=== PATIENT | male | born 1950 | race Caucasian/White ===

== ENCOUNTER → 2016-03-14 | Outpatient (CLI) | payer MEDICARE, BC ==
[2016-03-14 10:24] LABS: ALANINE AMINOTRANSFERASE 31 U/L (21-72); ALBUMIN 3.5 g/dL (3.5-5.0); ALKALINE PHOSPHATASE 74 U/L (38-126); ANION GAP 10 (5-19); ASPARTATE AMINO TRANSFERASE 23 U/L (17-59); BILIRUBIN,TOTAL 0.6 mg/dL (0.2-1.3); BLOOD UREA NITROGEN 24 mg/dL (7-20); CALCIUM 9.8 mg/dL (8.4-10.2); CARBON DIOXIDE 28 mmol/L (22-30); CHLORIDE 105 mmol/L (98-107); CHOLESTEROL 110.24 mg/dL (0-200); CREATININE RESULT 1.09 mg/dL (0.52-1.25); Direct HDL 34 mg/dL (>40); GLUCOSE 103 mg/dL (75-110); POTASSIUM 5.4 mmol/L (3.6-5.0); SODIUM 142.9 mmol/L (137-145); TOTAL PROTEIN 6.1 g/dL (6.3-8.2); TRIGLYCERIDES 100 mg/dL (<150)
[2016-03-14 10:35] LABS: DIRECT LDL 60 mg/dL (<100)
== END ==
LOC: OD 08:38
PROVIDERS: ATTEND Internal Medicine
DX: R73.9 Hyperglycemia, unspecified (principal); I10 Essential (primary) hypertension; E78.5 Hyperlipidemia, unspecified
CPT/HCPCS: 36415; 80053; 80061; 83525

== ENCOUNTER → 2016-11-23 | Outpatient (CLI) | payer MEDICARE, BC ==
[2016-11-23 09:20] LABS: ABSOLUTE EOSINOPHILS # (AUTO) 0.1 10^3/uL (0.0-0.6); ABSOLUTE LYMPHOCYTES (AUTO) 1.9 10^3/uL (0.5-4.7); ABSOLUTE MONOCYTES (AUTO) 0.4 10^3/uL (0.1-1.4); ABSOLUTE NEUT (AUTO) 2.8 10^3/uL (1.7-8.2); BASOPHILS % (AUTO) 0.6 % (0-2); EOSINOPHILS % (AUTO) 2.8 % (0-6); HEMATOCRIT 39.5 % (37.9-51.0); HEMOGLOBIN 13.5 g/dL (13.5-17.0); LYMPHOCYTES % (AUTO) 35.6 % (13-45); MEAN CORPUSCULAR HEMOGLOBIN 29.4 pg (27.0-33.4); MEAN CORPUSCULAR HGB CONC 34.2 g/dL (32.0-36.0); MEAN CORPUSCULAR VOLUME 86 fl (80-97); RED BLOOD COUNT 4.59 10^6/uL (4.35-5.55); RED CELL DISTRIBUTION WIDTH 13.8 % (11.5-14.0); WHITE BLOOD COUNT 5.2 10^3/uL (4.0-10.5)
[2016-11-23 09:50] LABS: ALANINE AMINOTRANSFERASE 24 U/L (21-72); ALBUMIN 3.6 g/dL (3.5-5.0); ALKALINE PHOSPHATASE 82 U/L (38-126); ANION GAP 9 (5-19); ASPARTATE AMINO TRANSFERASE 20 U/L (17-59); BILIRUBIN,DIRECT 0.4 mg/dL (0.0-0.4); BILIRUBIN,TOTAL 0.7 mg/dL (0.2-1.3); BLOOD UREA NITROGEN 17 mg/dL (7-20); CARBON DIOXIDE 26 mmol/L (22-30); CHLORIDE 106 mmol/L (98-107); CHOLESTEROL 112.98 mg/dL (0-200); CREATININE RESULT 0.94 mg/dL (0.52-1.25); Direct HDL 38 mg/dL (>40); GLUCOSE 104 mg/dL (75-110); POTASSIUM 4.3 mmol/L (3.6-5.0); SODIUM 141.4 mmol/L (137-145); TRIGLYCERIDES 90 mg/dL (<150)
[2016-11-23 10:01] LABS: DIRECT LDL 61 mg/dL (<100)
== END ==
LOC: OD 08:29
PROVIDERS: ATTEND Internal Medicine
DX: E78.5 Hyperlipidemia, unspecified (principal); R73.9 Hyperglycemia, unspecified; N40.0 Benign prostatic hyperplasia without lower urinary tract symptoms; R53.83 Other fatigue; R35.1 Nocturia; E66.9 Obesity, unspecified; I10 Essential (primary) hypertension
CPT/HCPCS: 36415; 80053; 80061; 83036; 84153; 84443; 85025

== ENCOUNTER → 2017-06-25 | Outpatient (CLI) | payer MEDICARE, BC ==
[2017-06-25 09:30] LABS: ABSOLUTE EOSINOPHILS # (AUTO) 0.2 10^3/uL (0.0-0.6); ABSOLUTE LYMPHOCYTES (AUTO) 2.7 10^3/uL (0.5-4.7); ABSOLUTE MONOCYTES (AUTO) 0.5 10^3/uL (0.1-1.4); ABSOLUTE NEUT (AUTO) 4.2 10^3/uL (1.7-8.2); BASOPHILS % (AUTO) 0.6 % (0-2); EOSINOPHILS % (AUTO) 2.6 % (0-6); HEMATOCRIT 40.3 % (37.9-51.0); HEMOGLOBIN 13.5 g/dL (13.5-17.0); LYMPHOCYTES % (AUTO) 34.6 % (13-45); MEAN CORPUSCULAR HEMOGLOBIN 29.2 pg (27.0-33.4); MEAN CORPUSCULAR HGB CONC 33.5 g/dL (32.0-36.0); MEAN CORPUSCULAR VOLUME 87 fl (80-97); PLATELET COUNT 217 10^3/uL (150-450); RED BLOOD COUNT 4.61 10^6/uL (4.35-5.55); RED CELL DISTRIBUTION WIDTH 13.5 % (11.5-14.0); SEGMENTED NEUTROPHILS % (AUTO) 55.2 % (42-78); TOTAL CELLS COUNTED % (AUTO) 100 %; WHITE BLOOD COUNT 7.7 10^3/uL (4.0-10.5)
[2017-06-25 09:59] LABS: ALANINE AMINOTRANSFERASE 41 U/L (21-72); ALBUMIN 3.8 g/dL (3.5-5.0); ALKALINE PHOSPHATASE 70 U/L (38-126); ANION GAP 10 (5-19); ASPARTATE AMINO TRANSFERASE 23 U/L (17-59); BILIRUBIN,DIRECT 0.2 mg/dL (0.0-0.4); BILIRUBIN,TOTAL 0.6 mg/dL (0.2-1.3); BLOOD UREA NITROGEN 35 mg/dL (7-20); CARBON DIOXIDE 29 mmol/L (22-30); CHLORIDE 105 mmol/L (98-107); CHOLESTEROL 114.41 mg/dL (0-200); GLUCOSE 110 mg/dL (75-110); POTASSIUM 5.3 mmol/L (3.6-5.0); SODIUM 143.5 mmol/L (137-145); TOTAL PROTEIN 6.2 g/dL (6.3-8.2); TRIGLYCERIDES 143 mg/dL (<150)
[2017-06-25 10:11] LABS: DIRECT LDL 58 mg/dL (<100)
== END ==
LOC: OD 08:15
PROVIDERS: ATTEND Internal Medicine
DX: E78.5 Hyperlipidemia, unspecified (principal); I48.0 Paroxysmal atrial fibrillation; R73.9 Hyperglycemia, unspecified; R60.9 Edema, unspecified; G47.33 Obstructive sleep apnea (adult) (pediatric)
CPT/HCPCS: 36415; 80053; 80061; 83525; 85025

== ENCOUNTER 2018-10-21 04:36 | Emergency (ER) | payer MEDICARE, BC ==
--- NOTE | 2018-10-21 06:16 | RADIOLOGY REPORT (SQ) ---
EXAM DESCRIPTION: XR WRIST 3 OR MORE VIEWS COMPLETED DATE/TME: 10/21/2018 00:00 CLINICAL HISTORY: 68 years, Male, fall, bone pain COMPARISON: None. NUMBER OF VIEWS: 3 TECHNIQUE: 3 views left wrist LIMITATIONS: None. FINDINGS: Osteopenia. Mild diffuse soft tissue swelling. Subtle lucency seen on the lateral view only in the region of the dorsal aspect of the lunate bone. This likely reflects superimposition of structures. Nondisplaced fracture. Unlikely. No other evidence for acute abnormality IMPRESSION: Osteopenia. Probable superimposition of structures on the lateral view. Mild soft tissue swelling. If symptoms persist consider repeat in 10-14 days copyright 2011 [employer]- All Rights Reserved
--- NOTE | 2018-10-21 06:19 | RADIOLOGY REPORT (SQ) ---
EXAM: X-ray fingers CLINICAL DATA: 68-year-old male status post fall with bone pain, pain in left thumb TECHNICAL DATA: Three x-ray views of the left thumb were performed on 10/21/2018 at 5:43 AM. COMPARISONS: None FINDINGS: There is no evidence of fracture or dislocation. There is no significant arthritis or degenerative change. No focal lytic or sclerotic bone lesions are seen. There is very mild narrowing of the DIP and PIP joints. Bone mineralization is slightly decreased. No focal soft tissue abnormalities are identified. IMPRESSION: No evidence of acute osseous injury involving the left hand with attention to the left thumb.
--- NOTE | 2018-10-21 06:19 | RADIOLOGY REPORT (SQ) ---
EXAM DESCRIPTION: XR FINGERS COMPLETED DATE/TME: 10/21/2018 00:00 CLINICAL HISTORY: 68 years, Male, bone pain COMPARISON: None. NUMBER OF VIEWS: 3 TECHNIQUE: 3 views of the right hand LIMITATIONS: None. FINDINGS: Negative for acute fracture or dislocation. Osteopenia with minor degenerative change throughout the hand. IMPRESSION: No acute osseous abnormality copyright 2010 [employer]- All Rights Reserved
[2018-10-21 07:38] VITALS: BP 134/76
--- NOTE | 2018-10-21 08:26 | ER Document Report ---
Entered by RAFAEL LEÓN SCRIBE 10/21/18 0704 Acting as scribe for:BRODY HERNANDEZ MD ED Fall - General Chief Complaint: Fall Stated Complaint: LEFT WRIST PAIN Time Seen by Provider: 10/21/18 06:41 Primary Care Provider: [facility] [Provider Group] - Follow up in 3-5 days DEANNE CAGLE MD [Primary Care Provider] - Follow up as needed Notes: Patient is a 68-year-old male that presents to the emergency department today with complaints of left wrist pain which began after a fall last night. Patient states he was walking up the steps last night when he got home and it was dark, he missed and stepped and tripped, falling on his right knee and outstretched arms. Patient states he scraped his right knee. Patient states his only concern is his left wrist. Patient states he took Motrin and Aleve last night but had trouble sleeping secondary to pain. TRAVEL OUTSIDE OF THE [place] IN LAST 30 DAYS: No - Related data Allergies/Adverse Reactions: Penicillins Allergy (Intermediate, Verified 10/21/18 07:38) Past Medical History - General Information source: Patient, [facility] Records - Social History Smoking Status: Never Smoker Cigarette use (# per day): No Frequency of alcohol use: None Drug Abuse: None Lives with: Family Family History: Reviewed & Not Pertinent - Past Medical History Cardiac Medical History: Reports: Hx Hypercholesterolemia, Hx Hypertension Endocrine Medical History: Reports: Hx Diabetes Mellitus Type 2 Renal/ Medical History: Reports: Hx Benign Prostatic Hyperplasia Past Surgical History: Reports: Hx Cholecystectomy, Hx Gastric Bypass Surgery Review of Systems - Review of Systems Constitutional: No symptoms reported EENT: No symptoms reported Cardiovascular: No symptoms reported Respiratory: No symptoms reported Gastrointestinal: No symptoms reported Genitourinary: No symptoms reported Male Genitourinary: No symptoms reported Musculoskeletal: See HPI, Joint pain - bilateral wrist pain Skin: No symptoms reported Hematologic/Lymphatic: No symptoms reported Neurological/Psychological: No symptoms reported -: Yes All other systems reviewed and negative Physical Exam - Vital signs Vitals: Temp Pulse Resp BP Pulse Ox 97.2 F 85 16 143/85 H 98 10/21/18 04:45 10/21/18 04:45 10/21/18 04:45 10/21/18 04:45 10/21/18 04:45 - Notes Notes: Physical Exam: General: Alert, appears well. Obese. HEENT: Normocephalic. Atraumatic. PERRL. Extraocular movements intact. Oropharynx clear. Neck: Supple. Non-tender. Respiratory: No respiratory distress. Clear and equal breath sounds bilaterally. Cardiovascular: Regular rate and rhythm. Abdominal: Obese. Non-tender. No distension. Normal Bowel Sounds. Back: Grossly normal Extremities: Moves all four extremities. Right wrist- Tenderness with palpation over the base of the 1st metacarpal. Tenderness with palpation over the thenar muscles of the right thumb. No snuff box tenderness with palpation. Left wrist- Dorsal swelling of the left wrist. Tenderness with palpation over the medial radial wrist. Tenderness with palpation over the base of the 1st metacarpal. Tenderness with palpation over the thenar muscles of the right thumb. No snuff box tenderness with palpation. Lower extremities: Normal inspection. No edema. Normal ROM. Neurological: Normal cognition. AAOx4. Normal speech. Psychological: Normal affect. Normal Mood. Skin: Warm. Dry. Normal color. Course - Re-evaluation Re-evalutation: 10/21/18 08:03 The Velcro cock-up splint was placed on the left wrist by the PCT. It fits well. It provides support and limits of motion at the wrist. Patient reports it does feel better. - Vital Signs Vital signs: Temp Pulse Resp BP Pulse Ox 97.9 F 64 16 134/76 H 97 10/21/18 07:37 10/21/18 07:37 10/21/18 07:37 10/21/18 07:37 10/21/18 07:37 - Diagnostic Test Radiology reviewed: Image reviewed, Reports reviewed - X-rays of both hands and the left wrist do not show fractures, there is osteopenia noted. Discharge - Discharge Clinical Impression: Osteopenia determined by x-ray Sprain of left wrist Qualifiers: Encounter type: initial encounter Qualified Code(s): S63.502A - Unspecified sprain of left wrist, initial encounter Sprain of hand Qualifiers: Encounter type: initial encounter Laterality: unspecified laterality Qualified Code(s): S63.90XA - Sprain of unspecified part of unspecified wrist and hand, initial encounter Condition: Stable Disposition: HOME, SELF-CARE Additional Instructions: Sprain: Your injury is a sprain. A sprain results from stretching or tearing of the ligaments, usually from a twisting injury. The ligaments will require time and protection in order to heal properly. Many sprains are quite disabling and should be taken seriously. The usual initial treatment of sprains is cold packs, elevation, and rest of the injured area. Your physician has assessed the seriousness of your ligament injury, and has outlined a treatment plan. Understand that this treatment may change, depending on how you progress. If a re-examination was recommended, it is important that you follow up as instructed. Call the doctor any time if there is severe pain, numbness, or loss of function in the injured area. You have a sprain of the left wrist, and sprain on both hands along the first metacarpal. Use the splint to protect the ligaments in the left wrist. Take ibuprofen 800 mg every 8 hours, or Aleve 2 tablets every 12 hours for pain. Take the pain medication as dispensed if needed to help you sleep. Call [facility] for surgery today to schedule a follow-up appointment with Dr. Oseguera. Be sure to discuss the osteopenia noted on the x-rays with your doctor. RETURN TO THE EMERGENCY ROOM IF ANY NEW OR WORSENING SYMPTOMS. Referrals: DEANNE CAGLE MD [Primary Care Provider] - Follow up as needed [facility] [Provider Group] - Follow up in 3-5 days I personally performed the services described in the documentation, reviewed and edited the documentation which was dictated to the scribe in my presence, and it accurately records my words and actions.
== END 2018-10-21 07:38 | disposition home or self-care (01) ==
LOC: ER 04:36
DX: S63.502A Unspecified sprain of left wrist, initial encounter (principal); S63.90XA Sprain of unspecified part of unspecified wrist and hand, initial encounter; M25.532 Pain in left wrist; M25.531 Pain in right wrist; W10.9XXA Fall (on) (from) unspecified stairs and steps, initial encounter; Y92.009 Unspecified place in unspecified non-institutional (private) residence as the place of occurrence of the external cause; M85.841 Other specified disorders of bone density and structure, right hand; M85.88 Other specified disorders of bone density and structure, other site; I10 Essential (primary) hypertension; E11.9 Type 2 diabetes mellitus without complications; E66.9 Obesity, unspecified; Z88.0 Allergy status to penicillin
CPT/HCPCS: 73140 ×2; 73110; L3908; 99283

== ENCOUNTER → 2018-12-18 | Outpatient (CLI) | payer MEDICARE, BC ==
[2018-12-18 09:18] LABS: ALBUMIN 3.9 g/dL (3.5-5.0); ALKALINE PHOSPHATASE 71 U/L (38-126); ANION GAP 8 (5-19); ASPARTATE AMINO TRANSFERASE 21 U/L (17-59); BILIRUBIN,DIRECT 0.1 mg/dL (0.0-0.4); BILIRUBIN,TOTAL 0.5 mg/dL (0.2-1.3); BLOOD UREA NITROGEN 33 mg/dL (7-20); CARBON DIOXIDE 28 mmol/L (22-30); CHLORIDE 104 mmol/L (98-107); GLUCOSE 103 mg/dL (75-110); POTASSIUM 5.3 mmol/L (3.6-5.0); TOTAL PROTEIN 6.6 g/dL (6.3-8.2); TRIGLYCERIDES 112 mg/dL (<150)
[2018-12-18 09:25] LABS: ABSOLUTE EOSINOPHILS # (AUTO) 0.1 10^3/uL (0.0-0.6); ABSOLUTE LYMPHOCYTES (AUTO) 1.9 10^3/uL (0.5-4.7); ABSOLUTE MONOCYTES (AUTO) 0.4 10^3/uL (0.1-1.4); ABSOLUTE NEUT (AUTO) 2.5 10^3/uL (1.7-8.2); BASOPHILS % (AUTO) 0.8 % (0-2); EOSINOPHILS % (AUTO) 2.1 % (0-6); HEMATOCRIT 37.9 % (37.9-51.0); HEMOGLOBIN 12.6 g/dL (13.5-17.0); LYMPHOCYTES % (AUTO) 38.8 % (13-45); MEAN CORPUSCULAR HGB CONC 33.4 g/dL (32.0-36.0); MEAN CORPUSCULAR VOLUME 87 fl (80-97); MONOCYTES % (AUTO) 7.8 % (3-13); PLATELET COUNT 240 10^3/uL (150-450); RED BLOOD COUNT 4.35 10^6/uL (4.35-5.55); RED CELL DISTRIBUTION WIDTH 13.4 % (11.5-14.0); SEGMENTED NEUTROPHILS % (AUTO) 50.5 % (42-78); TOTAL CELLS COUNTED % (AUTO) 100 %; WHITE BLOOD COUNT 4.9 10^3/uL (4.0-10.5)
[2018-12-18 09:30] LABS: DIRECT LDL 70 mg/dL (<100)
== END ==
LOC: OD 07:56
PROVIDERS: ATTEND Internal Medicine
DX: I12.9 Hypertensive chronic kidney disease with stage 1 through stage 4 chronic kidney disease, or unspecified chronic kidney disease (principal); N18.2 Chronic kidney disease, stage 2 (mild); R35.1 Nocturia; E78.5 Hyperlipidemia, unspecified; E88.81 Metabolic syndrome and other insulin resistance; N40.0 Benign prostatic hyperplasia without lower urinary tract symptoms; R53.83 Other fatigue
CPT/HCPCS: 36415; 80053; 80061; 83036; 84153; 84443; 85025

== ENCOUNTER → 2019-09-29 | Outpatient (CLI) | payer MEDICARE, BC ==
--- NOTE | 2019-09-30 21:45 | XCELERA REPORT ---
[address] [address] Transthoracic Echocardiogram Report Name: ARSH FRANCES Age: 69 yrs Gender: Male : 1950 Patient Status: Outpatient Patient Location: [facility] Study Date: 09/29/2019 03:14 PM Height: 70 in Weight: 336 lb BSA: 2.6 m2 Procedure: A two-dimensional transthoracic echocardiogram with color flow and Doppler was performed. The study was technically difficult with many images being suboptimal in quality. Reason For Study: AORTIC STENOSIS History: AORTIC STENOSIS. Ordering Physician: DEANNE CAGLE Performed By: Issa Zarate Interpretation Summary The left ventricle is normal in size. There is normal left ventricular wall thickness. LV EF is Greater than 65% Left ventricular systolic function is normal. Doppler measurements suggest impaired left ventricular relaxation, which is associated with grade I/IV or mild diastolic dysfunction The left ventricular wall motion is normal. There is no thrombus. Cannot assess ASD ,VSD , or PFO. The right ventricle is normal in size and function. The right atrium is normal. The left atrial size is normal. There is mild to moderate mitral leaflet calcification. There is no evidence of mitral valve prolapse. There is no vegetation seen on the mitral valve. There is no mitral valve stenosis. There is no mitral regurgitation noted. There is no aortic valvular vegetation. There is mild aortic stenosis There is a peak gradient of 17 mm of Hg. Hemodynamically significant valvular aortic stenosis cannot be excluded. There is no LVOT obstruction. No aortic regurgitation is present. There is no tricuspid stenosis. There is a mild amount of tricuspid regurgitation There is mild pulmonary hypertension by echo RVSP is 42 mm of Hg, with RA mean of 10. There is no pulmonic valvular stenosis. There is no pulmonic valvular regurgitation. The aortic root is normal size. The inferior vena cava was not visualized There is no pericardial effusion. MMode/2D Measurements & Calculations RVDd: 3.5 cm LVIDd: 5.4 cm FS: 38.6 % Ao root diam: 2.9 cm IVSd: 0.77 cm LVIDs: 3.3 cm EDV(Teich): 140.8 ml Ao root area: 6.8 cm2 LVPWd: 0.83 cm ESV(Teich): 44.4 ml LA dimension: 3.9 cm EF(Teich): 68.4 % Doppler Measurements & Calculations MV E max mervat: MV P1/2t max mervat: Ao V2 max: LV V1 max P.0 cm/sec 70.8 cm/sec 203.6 cm/sec 5.5 mmHg MV A max mervat: MV P1/2t: 64.2 msec Ao max PG: LV V1 max: 94.8 cm/sec MVA(P1/2t): 3.4 cm2 16.6 mmHg 117.5 cm/sec MV E/A: 0.78 MV dec slope: 322.9 cm/sec2 MV dec time: 0.26 sec PA V2 max: TR max mervat: MV P1/2t-pr_phl: 109.7 cm/sec 282.2 cm/sec 64.2 msec PA max P.8 mmHgTR max P.8 mmHg Left Ventricle The left ventricle is normal in size. There is normal left ventricular wall thickness. LV EF is Greater than 65%. Left ventricular systolic function is normal. Doppler measurements suggest impaired left ventricular relaxation, which is associated with grade I/IV or mild diastolic dysfunction. The left ventricular wall motion is normal. There is no thrombus. Cannot assess ASD ,VSD , or PFO. Right Ventricle The right ventricle is normal in size and function. Atria The right atrium is normal. The left atrial size is normal. Mitral Valve There is mild to moderate mitral leaflet calcification. There is no evidence of mitral valve prolapse. There is no vegetation seen on the mitral valve. There is no mitral valve stenosis. There is no mitral regurgitation noted. Aortic Valve There is no aortic valvular vegetation. There is mild aortic stenosis. There is a peak gradient of 17 mm of Hg. Hemodynamically significant valvular aortic stenosis cannot be excluded. There is no LVOT obstruction. No aortic regurgitation is present. Tricuspid Valve There is no tricuspid stenosis. There is a mild amount of tricuspid regurgitation. There is mild pulmonary hypertension by echo. RVSP is 42 mm of Hg, with RA mean of 10. Pulmonic Valve There is no pulmonic valvular stenosis. There is no pulmonic valvular regurgitation. Great Vessels The aortic root is normal size. The inferior vena cava was not visualized. Effusions There is no pericardial effusion. : DEANNE CAGLE Lakshmi
== END ==
LOC: SP 14:39
PROVIDERS: ATTEND Internal Medicine
DX: I35.0 Nonrheumatic aortic (valve) stenosis (principal)
CPT/HCPCS: 93306